=== PATIENT | female | born 1940 | race African-American/Black ===

== ENCOUNTER 2021-02-14 16:46 | Inpatient (IN) | payer OTHER ==
[~2021-02-14] VITALS: Ht 160 cm; Wt 72.6 kg
[2021-02-14 16:46] VITALS: BP 126/72
[2021-02-14 17:15] LABS: ABSOLUTE NEUTROPHILS 7.6 thou/uL (1.4-8.2); BASOPHILS 0.9 % (0.0-2.0); HEMATOCRIT 31.5 % (37.0-47.0); HEMOGLOBIN 10.4 gm/dL (12.0-15.0); LYMPHOCYTES 31.1 % (24.0-44.0); MCHC 33.1 g/dL (28.0-37.0); MCV 93.6 fL (80.0-100.0); MONOCYTES 10.9 % (1.0-8.0); PLATELET COUNT 284 thou/uL (150-400); POLYS 56.1 % (36.0-66.0); RBC 3.36 mil/uL (4.20-5.00); WBC 13.5 thou/uL (4.0-11.0)
[2021-02-14 17:18] LABS: CALCIUM 8.7 mg/dL (8.5-10.1); CREATININE 0.9 mg/dL (0.6-1.0); POTASSIUM 4.4 mmol/L (3.5-5.1)
[2021-02-14 17:24] LABS: ALBUMIN 2.3 g/dL (3.4-5.0); TOTAL BILIRUBIN 0.4 mg/dL (0.2-1.0); TOTAL PROTEIN 6.5 g/dL (6.4-8.2)
[2021-02-14] MEDS ORDERED: ELIQUIS5 MG PO (17:51)
[2021-02-14] MEDS ORDERED: NORVASC10 MG PO (17:51)
[2021-02-14] MEDS ORDERED: D3-501250 MCG PO (17:52)
[2021-02-14] MEDS ORDERED: VITCB500GO PO (17:52)
[2021-02-14] MEDS ORDERED: VITAMIN B-121000 MC2 PO (17:53)
[2021-02-14] MEDS ORDERED: COZAAR 25 MG TA25 M1 PO (17:53)
[2021-02-14 18:45] VITALS: BP 128/72
[2021-02-14 19:12] VITALS: BP 126/64
[2021-02-14 20:58] VITALS: BP 104/54
[2021-02-14] MEDS ORDERED: [UNRECOGNIZED DRUG - OTHER] (21:11)
[2021-02-14] MEDS ORDERED: SUPER THERAVIT1 EACH PO (21:11)
[2021-02-14] MEDS ORDERED: VEETIDS 500500 MG PO (21:12)
[2021-02-14] MEDS ORDERED: TRAMADOL 50 MG50 MG PO (21:13)
[2021-02-14] MEDS ORDERED: SENNA PLUS 8.61 EACH PO (21:13)
[2021-02-14] MEDS ORDERED: SPIRONOLACTONE50 MG PO (21:13)
[2021-02-14] MEDS ORDERED: ZINC50 M3 PO (21:14)
[2021-02-14 21:35] LABS: APTT 37.4 Seconds (24.5-32.8); INR 1.23; PROTIME 13.3 Seconds (10.5-12.1)
[2021-02-15 03:00] VITALS: BP 115/68
--- NOTE | 2021-02-15 03:21 | NUR ---
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
[2021-02-15 04:14] LABS: HEMATOCRIT 27.4 % (37.0-47.0); HEMOGLOBIN 9.2 gm/dL (12.0-15.0); MCH 31.3 pg (26.0-34.0); MCHC 33.7 g/dL (28.0-37.0); MCV 93.1 fL (80.0-100.0); RBC 2.95 mil/uL (4.20-5.00)
[2021-02-15 04:19] LABS: CALCIUM 8.1 mg/dL (8.5-10.1); CREATININE 0.8 mg/dL (0.6-1.0)
[2021-02-15 06:07] LABS: % SATURATION 19 % (20-39); IRON 22 ug/dL (50-170); TIBC 114 ug/dL (250-450)
[2021-02-15 07:09] LABS: FOLIC ACID 8.1 ng/mL (8.6-58.9)
--- NOTE | 2021-02-15 08:44 | NUR ---
Assess due to notification of wound. Chart reviewed, admitted with GIB, GI consulted. No indication of wt loss. Documentation by RN indicated a healed wound to left buttock. Folate depleted, 8.1-recommend replace. Otherwise low nutrition risk at this time.
--- NOTE | 2021-02-15 08:46 | NUR ---
Folate level is depleted 8.1, recommend supplementation
[2021-02-15 08:56] VITALS: BP 103/64
--- NOTE | 2021-02-15 16:49 | NUR ---
PT ADMITTED RELATED TO GI BLEED AND ANEMIA. CM REVIEWED CHART AND SPOKE WITH CARE TEAM. CM MET WITH PT AT BEDSIDE THIS DAY. PT APPEARED TO BE A&O X4. CM ROLE INTRODUCED. 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 PT INDICATED SHE HAD BEEN THERE FOR ABOUT 2 WEEKS. PT INDICATED SHE HAD GONE THERE FROM . PT HAD LIVED IN A HOUSE ALONE WITH 4 STEPS TO ENTER AND NO STEPS INSIDE PRIOR TO THAT HOSPITALIZATION. PT USING A WC TO ASSIST WITH MOBILITY AT [facility]. PT INDICATED THAT HE DTR AND GDTR ARE HER SUPPORTS. PT WAS A KU 01/26-02/02. PT INDICATED SHE ISN'T CERTAIN WHERE SHE WILL BE GOING UPON DC. CM REACHED OUT TO [facility] AND THEY INIDCATED THAT THEY ARE ABLE TO ACCEPT PT BACK ONCE MEDICALLY STABLE IF CINTINUED SKILLD STAY IS NEEDED. PT TO HAVE EGD AND COLONOSCOPY TOMORROW. CM FOLLOWING REGARDING DC PLANNING.
--- NOTE | 2021-02-15 20:20 | NUR ---
Assumed pt care at 7am.Pt in bed most of the time this shift.Repositioned q2h for comfort.Assessment completed.vss.Pt wanted to eat and drink.Gi consult called and Brigida means here.New order noted.Pt will be going for egd and colonoscopy in am.Family here and updates given.Bowel prep started around 1600.Pt has one bm and stated that she felt gagging when drinking golytely. If unable to finish the bowel prep,noc rn will notified Dr Ag for alternative bowel prep.Bloody stool noted x2 this shift and reported to Gi group.Report off to noc rn.
[2021-02-15 20:23] VITALS: BP 104/64
--- NOTE | 2021-02-16 03:39 | NUR ---
PT CARE ASSUMED WITH DTR AT BEDSIDE OF BED AT SHIFT CHANGE.PT IS A/O X4.PT IS ON BEDREST.PT NPO FROM MIDNIGHT FOR EGD AND WAS TO TAKE GOLYLYTE FOR BOWEL PREP FOR COLONOSCOPY BUT DIDNOT TAKE THE GOLYTELY C/O NAUSEA.ZOFRAN ADMINISTERED FOR NAUSEA.PT IS INCONTINENT TO B/B AND STILL HAVING DARK RED STOOLS.PERICARE GIVEN NEEDED.WOUND ON BUTTOCK APPLYING ZGAURD WITH EACH CHANGE.WILL CONTINUE TO MONITOR
[2021-02-16 05:44] LABS: HEMATOCRIT 21.9 % (37.0-47.0); HEMOGLOBIN 7.3 gm/dL (12.0-15.0); MCH 31.2 pg (26.0-34.0); MCHC 33.5 g/dL (28.0-37.0); RBC 2.35 mil/uL (4.20-5.00); WBC 10.2 thou/uL (4.0-11.0)
[2021-02-16 05:54] LABS: POTASSIUM 3.5 mmol/L (3.5-5.1)
[2021-02-16 08:00] VITALS: BP 99/57
--- NOTE | 2021-02-16 14:43 | NUR ---
Assumed pt care at 7am.Pt in bed sound asleep at the beginning of shift. Pt woke up around 9am.Informed Dr Ag about pt refusing to drink golytely for bowel prep last night per noc rn report. He asid he will see pt later and no order received regarding diet.Later this afternoon,Dr Larry notified to contact Gi group. Around 1300,Brigida means rounded on pt and order noted.Pt now on clear liq till evening.Egd and colonoscopy reschedulled for am.Pt iv infltrated x2 and was replaced by iv team.Family here to visit,updates given. Bowel prep will be given this evening.Family in room at present.Will continue to monitor.
[2021-02-16 15:35] VITALS: BP 110/47
--- NOTE | 2021-02-16 15:50 | NUR ---
CARE TEAM INDICATED THAT PT HADN'T BEEN ABLE TO TOLERATE PREP FOR COLONOSCOPY AND EGD THIS DAY. PT TO HAVE THEM TOMORROW. CM FOLLOWING REGARDING DC PLANNING. [facility] CAN ACCE[facility] PT BACK ONCE MEDICALLY STABLE BUT THEY WILL NEED AUTH. CM FOLLOWING REGARDING DC PLANNING.
--- NOTE | 2021-02-16 16:57 | NUR ---
VAT CONSULTED FOR PIV, VESSELS DEEP ATTEMPTED MEGHAN MIDLINE BUT UNABLE TO CANNULATE VESSEL. WAS ABLE TO START PIV IN MEGHAN WITH LONG #22G. PT TOLERATED WELL
[2021-02-16 20:00] VITALS: BP 115/61
[2021-02-17 02:55] LABS: HEMATOCRIT 21.1 % (37.0-47.0); MCH 31.3 pg (26.0-34.0); MCHC 33.4 g/dL (28.0-37.0); MCV 93.7 fL (80.0-100.0); RBC 2.25 mil/uL (4.20-5.00); RDW 15.9 % (10.5-14.5); WBC 8.8 thou/uL (4.0-11.0)
--- NOTE | 2021-02-17 03:22 | NUR ---
PT CARE ASSUMED AT 1900 WITH FAMILY AT BEDSIDE.PT IS A/O X4.PT IS ON BEDREST AND USES A W/C AT HOME AND UNABLE TO WALK.PT NPO FROM MIDNIGHT AND HAD BOWEL PREP.IV ON RT UA INFILTTRATED AND WAS D/C.APPLYING ZGUARD ON WOUND ON BUTTOCKS.WILL CONTINUE TO MONITOR
[2021-02-17 04:45] LABS: ALBUMIN 1.9 g/dL (3.4-5.0); CALCIUM 8.1 mg/dL (8.5-10.1); CREATININE 0.8 mg/dL (0.6-1.0); POTASSIUM 3.2 mmol/L (3.5-5.1); TOTAL BILIRUBIN 0.2 mg/dL (0.2-1.0); TOTAL PROTEIN 5.4 g/dL (6.4-8.2)
[2021-02-17 09:06] VITALS: BP 116/62
--- NOTE | 2021-02-17 11:30 | NUR ---
Nutrition status has changed to moderate risk with more nutrition information obtained from pt.
[2021-02-17 12:15] VITALS: BP 117/60; BP 133/77
--- NOTE | 2021-02-17 14:57 | NUR ---
PT HAD EGD AND COLONOSCOPY THIS DAY. CM FAXED CLINICAL UPDATE TO [facility] THIS DAY AND ASKED THAT THEY SUBMIT FOR NEW SKILLED AUTH CARE TEAM INDICATED SHE COULD BE DC READY IN 48HRS. CM FOLLOWING REGARDING DC PLANNING.
--- NOTE | 2021-02-17 15:40 | NUR ---
PT RESTING COMFORTABLY. UPPER AND LOWER ENDOSCOPE PERFORMED IN GI LAB. 1 UNIT PRBC GIVN PER [facility] PROTOCAL. BLOOD TRANSFUSION AUDIT WILL SHOW THAT THERE WERE NO VSS TAKEN AT THE 1 HOUR ANTHONY OF TRANSFUSION, THIS IS DUE TO PT BEING IN GI LAB. PT AFEBRILE, NO BM, POOR APPETITE, LOW URINE OUTPUT. PT AND FAMILY HAVE BEEN THOUROUGHLY UPDATED AND EDUCATED ON PT CONDITION AND POC. PT SLOWLY PROGRESSING TOWARDS POC.
[2021-02-17 20:38] VITALS: BP 110/54
[2021-02-18 07:30] VITALS: BP 122/45
[2021-02-18 11:21] LABS: HEMATOCRIT 22.8 % (37.0-47.0); HEMOGLOBIN 7.7 gm/dL (12.0-15.0); MCH 30.7 pg (26.0-34.0); MCHC 33.6 g/dL (28.0-37.0); MCV 91.5 fL (80.0-100.0); RBC 2.49 mil/uL (4.20-5.00); RDW 15.5 % (10.5-14.5); WBC 8.5 thou/uL (4.0-11.0)
[2021-02-18 11:34] LABS: CALCIUM 8.2 mg/dL (8.5-10.1); CREATININE 0.9 mg/dL (0.6-1.0); MAGNESIUM 1.5 mg/dL (1.8-2.4)
--- NOTE | 2021-02-18 15:19 | NUR ---
ASSUMED CARE OF PATIENT AT SHIFT CHNAGE. ASSESSMENT CHARTED. MEDS ADMNINISTERED PER EMAR. VSS. PATIENT IS A&OX4 AND ABLE TO MAKE NEEDS KNOWN. PATIENT VOICES SLIGHT ABDOMINAL PAIN RELIEVED BY REST. HEAT PAD IN ROOM AND WORKING FOR PATIENT USE. PATIENT IS UP X1-2 FROM CHAIR TO BED/BED TO CHAIR. PATIENT HAD NO IV ACCESS UPON ASSESSMENT; VAT REQUESTED FOR PICC LINE INSERTION. PATIENT HGB DROPPED FROM 7.8 TO 7.7 THIS SHIFT. AFTER BREAKFAST LOOSE STOOLS NOTED BUT NO APPARENT BLOOD SEEN IN STOOL. STOOL SAMPLE TO BE COLLECTED AND TESTED FOR CDIFF. PICC LINE INSERTED ON L UA AND INFUSING NS W NO ISSUES. PATIENT OTHERWISE VOICING NO NEEDS. PATIENT ABLE TO REPOSITION SELF AND ASKS FOR ASSISTANCE IF NEEDED. FALL PRECAUTIONS IN PLACE. WILL CONTINUE FREQUENT MONITORING
--- NOTE | 2021-02-18 16:10 | NUR ---
CM FAXED PT EVAL AND PROG NOTES TO [facility] FOR NEW SKILLED AUTH THIS AM. ANTICPATED POSSIBLE DC TOMORROW LEIGH FOR SKILLED REHAB AT [facility]. CM FOLLOWING REGARDING DC PLANNING.
[2021-02-19] VITALS (7 sets, daily range): BP systolic 105–119; BP diastolic 48–60
[2021-02-19 07:00] LABS: HEMOGLOBIN 6.8 gm/dL (12.0-15.0)
[2021-02-19 07:01] LABS: HEMATOCRIT 20.6 % (37.0-47.0); MCH 30.2 pg (26.0-34.0); MCHC 32.8 g/dL (28.0-37.0); MCV 92.1 fL (80.0-100.0); RBC 2.24 mil/uL (4.20-5.00); RDW 15.7 % (10.5-14.5)
[2021-02-19 07:03] LABS: CALCIUM 8.1 mg/dL (8.5-10.1); CREATININE 0.8 mg/dL (0.6-1.0); POTASSIUM 3.6 mmol/L (3.5-5.1)
[2021-02-19 12:56] LABS: HEMATOCRIT 22.6 % (37.0-47.0); HEMOGLOBIN 7.7 gm/dL (12.0-15.0); MCH 31.1 pg (26.0-34.0); MCHC 33.8 g/dL (28.0-37.0); MCV 92.2 fL (80.0-100.0); RBC 2.46 mil/uL (4.20-5.00); RDW 16.1 % (10.5-14.5); WBC 9.4 thou/uL (4.0-11.0)
--- NOTE | 2021-02-19 15:53 | NUR ---
TAM reviewed chart and spoke with nursing and attending physician. Pt is progressing towards goals for discharge. Hemoglobin dropped and pt may have a blood transfusion. Discharge to [facility] is anticipated for tomorrow pending insurance authorization. TAM faxed updated clinical/therapy notes to [facility] for review. Updated Leta in admissions. TAM met with pt and family at bedside to provide update and discuss discharge plan. All are aware and in agreement with plan. Staff to contact [facility] admissions liaison over the weekend if pt is medically stable for discharge. If the facility has obtained auth and can accept pt, finalized discharge orders/summary will need to be faxed to the facility. Nursing will need to call report. Chart copy will need to be completed. TAM is available to assist should needs arise. [facility]--- ASK FOR SAFETY COMPANION LIAISON
--- NOTE | 2021-02-19 18:06 | PATH ---
[facility] [place] [address] PATHOLOGY RPT PROCEDURE Name: ALINE YOUNG Room #: 463-P ADM IN M.R.#: [id number] Admission: 02/14/21 Date of : 38 Discharge: Report #: [id number] Path Case #: [id number] [facility] Accession Number: [id number] . 01 Material submitted: . PART A: duodenum - DUODENUM CELIAC PART B: stomach - ANTRUM H.PYLORI . 01 Clinical history: . ESOPHAGUS STRICTURE, HIATAL HERNIA, GASTRITIS . 02 Diagnosis: A. Small bowel mucosa, duodenum celiac, endoscopic biopsy: - No significant diagnostic abnormalities present. - Negative for villous blunting or increase in intraepithelial lymphocytes. . B. Gastric mucosa, antrum, rule out H. pylori, endoscopic biopsy: - Mild reactive gastropathy. - Negative for intestinal metaplasia or atrophy. - Negative for Helicobacter pylori (properly controlled immunohistochemical performed). (IUV:pit; 02/19/2021) QTP 02/19/2021 1416 Local . 02 Electronically signed: . Cathi Roque MD, Pathologist NPI- [id number] . 01 Gross description: . A. The specimen is received in formalin, labeled "Aline Young, duodenum". Received is a segment of pale horton tissue measuring 0.4 cm in maximum dimensions. The specimen is submitted entirely in cassette A1. . B. The specimen is received in formalin, labeled "Aline Young, antrum". Received are two segments of pale horton tissue measuring 0.3 and 0.6 cm in maximum dimensions. The specimen is submitted entirely in cassette B1. (CAA; 02/18/2021) QAC/QA 02/19/2021 1413 Local . 02 Pathologist provided ICD-10: K31.9, K22.2, K44.9 . 02 CPT . 620271, 338273, R89353 Specimen Comment: A courtesy copy of this report has been sent to [phone], [phone], [place] [address] PATHOLOGY RPT PROCEDURE Name: ALINE YOUNG Room #: 463-P ADM IN M.R.#: [id number] Admission: 02/14/21 Date of : 38 Discharge: Report #: [id number] Path Case #: [id number] Specimen Comment: [id number] Specimen Comment: Report sent to / DR UGALDE Performed at: [address], [place], [place] [id number] MD Rudolph Guerra MD Phone: [phone] Performed at: [address] [id number] MD Cathi Roque MD Phone: [phone]
--- NOTE | 2021-02-19 20:25 | NUR ---
Received awake on bed. Due medications given as prescribed, crushed and mixed with apple sauce. On telemetry; no complains and signs of chest pain, crushing sensation and heaviness. On room air. Om mechanically altered diet- assisted and encouraged in eating and drinking; no nausea, no vomiting and no abdominal pain noted. Still a/w stool sample to be collected. Maitained on isolation- r/o cdiff. Incontinent of bowel and bladder; checked frequently and changed as needed. Pt turned on her sides rgularly. Falls bundle in place. With L upper arm PICC line, 2 lumen- dressing changed today. Able to sit out on the chair today. No complains of pain made during assessment. Pt's grand daughter at bedside- update given. With orders for blood transfusion- infused as per protocol; no untoward reactions noted. Pt' daughter updated this PM as well. ?Wound on her buttocks- Night RN informed to check re: this- no documented photo. To continue monitoring patient.
--- NOTE | 2021-02-20 02:23 | NUR ---
ASSUMED PT CARE AT 1900.PT WAS OBSERVED WATCHING TV AT SHIFT CHANGE.FAMILY LATER STOPPED BY TO VISIT.PT C/O BACK PAIN,MANAGED WITH MED AND HEATING PAD.PT STILL NEED STOOL FOR OCCULT BLOOD,NONE GOTTEN SO FAR.FALL AND ISOLATION PRECAUTIONS MAINTAINED.PT SR ON TELE.CALL LIGHT WITHIN REACH.
[2021-02-20 06:10] LABS: HEMATOCRIT 25.4 % (37.0-47.0); HEMOGLOBIN 8.6 gm/dL (12.0-15.0); MCH 31.2 pg (26.0-34.0); MCV 91.9 fL (80.0-100.0); RBC 2.77 mil/uL (4.20-5.00); RDW 15.2 % (10.5-14.5); WBC 10.7 thou/uL (4.0-11.0)
[2021-02-20 07:53] VITALS: BP 123/68
[2021-02-20 15:45] VITALS: BP 116/58
--- NOTE | 2021-02-20 19:58 | NUR ---
PT ASSESSED AT START OF SHIFT. NEG FOR CDIFF. LOOSE STOOLS STOPPED. NO FURTHER BLEEDING NOTED. PAIN MED FOR C/O MIDSECTION PAIN. DTRS HERE FOR VISIT. PLAN FOR DC ON MONDAY TO .
[2021-02-20 20:00] VITALS: BP 113/51
--- NOTE | 2021-02-21 03:22 | NUR ---
ASSESSMENT DOCUMENTED.PT BEEN RESTING IN NO ACUTE DISTRESS.VSS.AFEBRILE.ON RA W/O RESP DISTRESS.SR ON TELEMETRY.STAFF ASSSIST WITH INCONTINENCE AND PERICARE.HAS HEATING PAD ON FOR PAIN CONTROL TO BACK.OFFERED PAIN MEDS BUT DECLINED MED.POSSIBLE DISCHARGE ON MONDAY.
[2021-02-21 05:20] VITALS: BP 119/60
[2021-02-21 08:07] VITALS: BP 117/63
--- NOTE | 2021-02-21 15:16 | NUR ---
PT IS A&O*4 AND BEDREST WITH REPOSITION Q2. SAFETY PRECAUTION APPLIED AND EDUCATED TO PATIENT AND FAMILY. PT IS INDEPENDENT ON EATING AND DRIKING. NO PAIN COMPLAIN TODAY. PT IS INCOTINENCE AND CLEANDED AND CHANGED THE PAD FOR PATIENT COUPLE TIMES TODAY. WILL KEEP MONITOR FOR GI BLEEDING, VITAL SIGN, SAFETY AND HEART RHYTHM UNTIL THE SHFIT CHANGE.
[2021-02-21 16:58] VITALS: BP 120/53
[2021-02-21 19:34] VITALS: BP 123/48
--- NOTE | 2021-02-22 05:27 | NUR ---
Pt. rested quietly during the night when checked on during frequent rounds. She c/o some abdominal pain and po pain med given (see emar) with some relief noted. Incontinent of urine and tamara care given. Bed alarm is on.
[2021-02-22 07:30] VITALS: BP 115/54
[2021-02-22 09:18] LABS: HEMATOCRIT 25.3 % (37.0-47.0); HEMOGLOBIN 8.4 gm/dL (12.0-15.0); MCH 30.8 pg (26.0-34.0); MCHC 33.2 g/dL (28.0-37.0); MCV 92.8 fL (80.0-100.0); RBC 2.73 mil/uL (4.20-5.00); RDW 15.6 % (10.5-14.5); WBC 13.8 thou/uL (4.0-11.0)
--- NOTE | 2021-02-22 10:53 | NUR ---
WOUND CARE CONSULT; AWAKE, ALERT, COOPERATIVE, ASSESSED R BUTTOCK SACRAL WOUND W/ TELECOMMUNICATIONS PROJECT MANAGER, PHOTO TAKEN, HEALING, NO S/S INFECTION,PINK VIABLE TISSUE PRESENT, DR BREWSTER ALSO IN ROOM ASSESSED WOUND,PT ABLE TO TURN SELF IN BED, ENCOURAGED TO NOT SIT LONG PERIODS, OFF LOADING, SEE PROCESS INTERVENTION FOR WOUND DETAILS. POSSIBLE DC TODAY RECOMMENDATIONS; ZGUARD, COVER W/ BORDER FOAM, DAILY AND PRN, ENCOURAGE TURNING, OFF LOADING PRESSURE RELIEF TELECOMMUNICATIONS PROJECT MANAGER AWARE
--- NOTE | 2021-02-22 11:31 | NUR ---
[facility] INDICATED THAT THEY GOT SKILLED AUTH AND WERE ABLE TO ACCEPT PT SOON SHE WAS MEDICALLY STABLE. COVID NOW ORDERED. CARE TEAM INDICATED THAT PT HAS ELEVATED WBC AND NO DC TODAY. CM NOTIFEID [facility]. CM FOLLOWING REGARDING DC PLANNING.
[2021-02-22 16:46] LABS: URINE CLARITY CLOUDY; URINE COLOR YELLOW; URINE GLUCOSE-RANDOM* NEGATIVE (Negative); URINE PROTEIN (DIPSTICK) NEGATIVE (Negative); URINE SPECIFIC GRAVITY 1.005 (1.005-1.035)
[2021-02-22 16:47] LABS: URINE BILIRUBIN NEGATIVE (Negative); URINE BLOOD NEGATIVE (Negative); URINE KETONES NEGATIVE (Negative); URINE NITRITE-REFLEX POSITIVE (Negative); URINE UROBILINOGEN 0.2 E.U./dl (0.2-1.0)
[2021-02-22 16:48] LABS: URINE LEUKOCYTES-REFLEX 2+ (Negative)
[2021-02-22 16:49] LABS: BACTERIA-REFLEX >30 Many /HPF (None Seen); CASTS None Seen /LPF (None Seen); CRYSTALS None Seen /LPF (None Seen); SQUAMOUS 0-3 Few /LPF (0-3); URINE RBC None Seen /HPF (NONE SEEN); URINE WBC-REFLEX 6-15 Few /HPF (0-5)
[2021-02-22 20:20] VITALS: BP 121/56
--- NOTE | 2021-02-23 03:49 | NUR ---
PT CARE ASSUMED WITH PT IN BED WATCHING TV.PT IS A/O X4.PT IS ON BEDREST.PT IS INCONTINENT TO B/B.PT C/O PAIN AND PAIN MANAGED WITH TRAMADOL.PT TAKE MEDS WHOLE WITH NO ISSUES.WILL CONTINUE TO MONITOR PER POC
[2021-02-23 05:55] LABS: HEMATOCRIT 25.3 % (37.0-47.0); HEMOGLOBIN 8.5 gm/dL (12.0-15.0); MCHC 33.6 g/dL (28.0-37.0); MCV 92.4 fL (80.0-100.0); RBC 2.73 mil/uL (4.20-5.00); RDW 15.1 % (10.5-14.5); WBC 12.7 thou/uL (4.0-11.0)
[2021-02-23 07:54] VITALS: BP 102/52
--- NOTE | 2021-02-23 12:08 | NUR ---
PT HAD ABD CT THIS DAY. UA WAS DRAWN AND PT WAS STARTED ON IV ROCEPHIN. SKILLED AUTH IS GOOD UNITL Monday02/25/21. CM NOTIFIED PHYSICIAN. CM FOLLOWING REGARDING DC PLANNING.
--- NOTE | 2021-02-23 12:45 | NUR ---
ASSUMED PT CARE THIS AM. PT A&OX4, ABLE TO MAKE NEEDS KNOWN. PATIENT REMAINS INCONTINENT. NO COMPLAINTS OF PAIN AT TIME OF ASSESSMENT. PATIENT IS ON ROOM AIR. IV PATENT, ANTIBIOTICS INFUSING. PATIENT TOOK MORNING MEDS WITHOUT ISSUE. PATIENT REMAINS ON TELE. FALL PRECAUTIONS ARE IN PLACE, CALL LIGHT WITHIN REACH.
[2021-02-23 16:42] VITALS: BP 122/65
[2021-02-23 19:22] VITALS: BP 114/62
--- NOTE | 2021-02-24 05:05 | NUR ---
Pt. rested quietly during the night when checked on during frequent rounds. She c/o some abdominal pain and po pain med given (ee emar) with some relief noted. Incontinent of urine and tamara care given. Bed alarm is on. Pt. turned and repositioned.
[2021-02-24 07:34] LABS: HEMATOCRIT 25.5 % (37.0-47.0); HEMOGLOBIN 8.5 gm/dL (12.0-15.0); MCH 31.2 pg (26.0-34.0); MCHC 33.4 g/dL (28.0-37.0); MCV 93.3 fL (80.0-100.0); RBC 2.73 mil/uL (4.20-5.00); RDW 15.2 % (10.5-14.5); WBC 10.9 thou/uL (4.0-11.0)
[2021-02-24 07:37] LABS: CALCIUM 8.4 mg/dL (8.5-10.1); CREATININE 0.8 mg/dL (0.6-1.0); MAGNESIUM 1.5 mg/dL (1.8-2.4); POTASSIUM 3.6 mmol/L (3.5-5.1)
[2021-02-24 07:54] VITALS: BP 112/61
--- NOTE | 2021-02-24 11:21 | HC ---
[facility] [place] [address] CONSULTATION Name: ALINE QURESHI Room #: 463-P ADM IN M.R.#: [id number] Admission: 02/14/21 Attend Phys: Case Larry MD Discharge: Date of : 38 Report #: [id number] THIS REPORT FOR: cc: Daron Thornton MD, Christopher B. MD Barry, Joseph W. MD ~ DOC #: [id number] Jacob Perry MD DATE OF SERVICE: 02/23/2021 INFECTIOUS DISEASE CONSULTATION ATTENDING PHYSICIAN: Dr. Keen. REASON FOR EVALUATION: Complicated urinary tract infection. HISTORY OF PRESENT ILLNESS: The patient examined. This is an 80-year-old woman with history of apparently recurrent urinary tract infections. She is on chronic suppressive therapy with penicillin VK. She is unable to give too many details of her history other than she keeps getting these infections. She was admitted with complaints of lower gastrointestinal hemorrhage. She has been on anticoagulation. Did have some lower abdominal pain and discomfort and did admit to some dysuria as well. She was evaluated, underwent upper endoscopy as well as colonoscopy, felt to have a diverticular hemorrhage. It is notable she had required 2 units of packed red cells through hospitalization. She did have a urine collected on 02/22/2021 that showed moderate pyuria evidenced, now growth of Escherichia coli, awaiting susceptibilities. Followup imaging from today notes no hydronephrosis, did have some circumferential bladder wall thickening and trabeculation, felt to be hypertrophy due to chronic bladder outlet obstruction. Also, a large amount of fluid within the endometrial canal and the uterus, also has extensive diverticulosis, so empirically placed on ceftriaxone, awaiting susceptibilities. She does admit to ongoing pain. She notes she had anorexia, has improved p.o. intake. Denies significant pulmonary related complaints. She has not had recent fevers. Denies chills. She is mildly encephalopathic, suspect chronic basis. ALLERGIES: BACTRIM, SHE DESCRIBES URTICARIA. CURRENT MEDICATIONS: Include ceftriaxone, apixaban, pantoprazole, multivitamin, cyanocobalamin, ascorbic acid, amlodipine, tramadol, melatonin, Pen-Vee K. PAST MEDICAL HISTORY: History of hypertension, coronary artery disease, gout, chronic DVT, transverse myelitis, history of PE, recurrent urinary tract infection. SOCIAL HISTORY: No ethanol. [address] [address] CONSULTATION Name: ALINE QURESHI Room #: 463-P [facility] IN M.R.#: [id number] Admission: 02/14/21 Attend Phys: Case Larry MD Discharge: Date of : 38 Report #: [id number] FAMILY HISTORY: Noncontributory. REVIEW OF SYSTEMS: Otherwise, unremarkable. PHYSICAL EXAMINATION: GENERAL: She is pleasant, alert. She is mildly encephalopathic, appears chronically ill and undernourished, in mild to moderate distress. She is feeding herself breakfast. VITAL SIGNS: Temperature 98.1, pulse 69, respirations 18, blood pressure 102/52. SKIN: Warm, dry, no rashes. HEENT: Normocephalic. Extraocular muscles intact. NECK: Supple. LUNGS: Diminished breath sounds. Few scattered crackles at the bases. HEART: Regular, occasional ectopy, soft systolic murmur. ABDOMEN: Soft, mildly distended, somewhat firm. No overt peritoneal signs. GENITOURINARY AND RECTAL: Deferred. DIAGNOSTIC AND LABORATORY DATA: CT abdomen and pelvis as described above. Urine culture with growth of E. coli. CBC: White count of 12.7, H and H 8.5 and 25.3, platelets of 230. Coronavirus testing was negative. C. diff was negative. Most recent electrolytes, sodium 143, potassium 3.6, chloride 112, bicarbonate 21, anion gap of 10, BUN and creatinine 3 and 0.8. Previous LFTs on admission were unremarkable. Albumin was noted to be very low at 1.9. ASSESSMENT AND PLAN: Complicated urinary tract infection, likely multifactorial ____ recurrence, apparently has some structural issues, perhaps a bladder outlet obstruction. I do not have the details of her previous urological workup, has been placed on chronic suppressive therapy. Penicillin was fairly narrow spectrum, although I cannot exclude more resistant organisms at this point. Creatinine in the normal range when last checked. We will dose with aminoglycoside x 1 pending susceptibilities. Continue ceftriaxone for now. We will add incentive spirometry to rule out possible early pneumonitis, aspiration. She remains tenuous at this point. Jacob Perry MD JWB/EKT/UPE <ELECTRONICALLY SIGNED> By: Jacob Perry MD 02/24/21 1121 0950 19 Jacob Perry MD /nt
--- NOTE | 2021-02-24 12:25 | NUR ---
ASSUMED PT CARE THIS AM. PT A&OX4, ABLE TO MAKE NEEDS KNOWN. IV PATENT, MEDICATIONS INFUSED WITHOUT ISSUE. WOUND CARE COMPLETED TO RIGHT BUTTOCK, WOUND PICTURE TAKEN. PATIENT HAS BEEN INCONTINENT THIS SHIFT. PATIENT IS ON ROOM AIR. PATIENT TOOK ALL MEDS WITHOUT ISSUE. PATIENT REMAINS ON TELE. PATIENT HAS NO COMPLAINTS OF PAIN OR NUMBNESS. FALL PRECAUTIONS ARE IN PLACE, CALL LIGHT WITHIN REACH.
[2021-02-24] MEDS ORDERED: PROTONIX 20 MG20 M1 PO (14:38)
[2021-02-24] MEDS ORDERED: AUGMENTIN 500-1 EACH PO (14:39)
[2021-02-24 16:15] VITALS: BP 111/59
--- NOTE | 2021-02-24 16:31 | NUR ---
CARE TEAM INDICATED PT IS MEDICALLY STABLE TO DC BACK TO [facility] SK[facility]ED THIS DAY. CHART COPY MADE. ORDERS FAXED. [facility] ARRANGED FOR 1700. CM NOTIFIED PT AND DTR. NO OTHER CM INTERVENTION INDICATED. CASE CLOSED.
== END 2021-02-24 18:08 | DRG 377 ==
LOC: ER 16:46 → 4W 18:41 → EROBS 18:41 → EDBD 18:41 → 4W 19:14
PROVIDERS: Internal Medicine; Nurse Practitioner; Nurse Practitioner Family; Physician Assistant; ADMIT Hospitalist; ATTEND Hospitalist
PROC: 30233N1 Transfusion of Nonautologous Red Blood Cells into Peripheral Vein, Percutaneous Approach (ICD-10-PCS; principal; 2021-02-17)
PROC: 0DB78ZX Excision of Stomach, Pylorus, Via Natural or Artificial Opening Endoscopic, Diagnostic (ICD-10-PCS; principal; 2021-02-17)
PROC: 0DJD8ZZ Inspection of Lower Intestinal Tract, Via Natural or Artificial Opening Endoscopic (ICD-10-PCS; principal; 2021-02-17)
PROC: 0DB98ZX Excision of Duodenum, Via Natural or Artificial Opening Endoscopic, Diagnostic (ICD-10-PCS; principal; 2021-02-17)
PROC: 05HY33Z Insertion of Infusion Device into Upper Vein, Percutaneous Approach (ICD-10-PCS; 2021-02-18)
DX: K57.31 Diverticulosis of large intestine without perforation or abscess with bleeding (principal); E43 Unspecified severe protein-calorie malnutrition; D62 Acute posthemorrhagic anemia; N39.0 Urinary tract infection, site not specified; G37.3 Acute transverse myelitis in demyelinating disease of central nervous system; Z16.12 Extended spectrum beta lactamase (ESBL) resistance; K29.71 Gastritis, unspecified, with bleeding; I25.10 Atherosclerotic heart disease of native coronary artery without angina pectoris; Z20.822 Contact with and (suspected) exposure to COVID-19; I10 Essential (primary) hypertension; Z60.2 Problems related to living alone; R53.81 Other malaise; M10.9 Gout, unspecified; K59.00 Constipation, unspecified; R63.4 Abnormal weight loss; E53.8 Deficiency of other specified B group vitamins; R29.6 Repeated falls; K22.2 Esophageal obstruction; G47.00 Insomnia, unspecified; E83.42 Hypomagnesemia; K44.9 Diaphragmatic hernia without obstruction or gangrene; K64.8 Other hemorrhoids; E87.6 Hypokalemia; K31.9 Disease of stomach and duodenum, unspecified; B96.20 Unspecified Escherichia coli [E. coli] as the cause of diseases classified elsewhere; N85.8 Other specified noninflammatory disorders of uterus; N32.0 Bladder-neck obstruction; Z88.2 Allergy status to sulfonamides; Z88.8 Allergy status to other drugs, medicaments and biological substances; Z86.718 Personal history of other venous thrombosis and embolism; Z86.711 Personal history of pulmonary embolism; Z68.28 Body mass index [BMI] 28.0-28.9, adult
CPT/HCPCS: 10045; 27000; 62110; 62900; 70005